=== PATIENT | female | born 1970 | race Hispanic/Latino ===

== ENCOUNTER 2017-03-14 23:22 | Emergency (ER) | payer OTHER ==
[2017-03-14 23:28] VITALS: BP 107/80; PULSE 76; RESP 16; TEMP 98; O2SAT 98
--- NOTE | 2017-03-14 23:58 | ED PDOC ---
HPI: Psych/Substance Abuse Time Seen by Provider: 03/14/17 23:35 Chief Complaint (Nursing): Alcohol Ingestion Chief Complaint (Provider): etoh History Per: Patient, EMS Additional History Per: Patient, EMS Additional Complaint(s): 46 y/o female brought in by EMS for acute alcohol intoxicatoin. Patient admits to drinking, she offers no acute medical or psychiatric complaints. Past Medical History Reviewed: Historical Data, Nursing Documentation, Vital Signs Vital Signs: Last Vital Signs Temp 98.0 F 03/14/17 23:23 Pulse 76 03/14/17 23:23 Resp 16 03/14/17 23:23 BP 107/80 03/14/17 23:23 Pulse Ox 98 03/14/17 23:23 - Medical History PMH: No Chronic Diseases - Surgical History Surgical History: No Surg Hx - Family History Family History: States: Unknown Family Hx - Social History Current smoker - smoking cessation education provided: No Alcohol: Occasional Drugs: Denies - Allergies Allergies/Adverse Reactions: Allergies Allergy/AdvReac Type Severity Reaction Status Date / Time Sulfa (Sulfonamide Allergy ITCHING Verified 03/14/17 23:23 Antibiotics) Review of Systems ROS Statement: Except As Marked, All Systems Reviewed And Found Negative Physical Exam - Reviewed Nursing Documentation Reviewed: Yes Vital Signs Reviewed: Yes - Physical Exam Appears: Positive for: Well, Non-toxic, No Acute Distress Head Exam: Positive for: ATRAUMATIC, NORMAL INSPECTION, NORMOCEPHALIC ENT: Positive for: Normal ENT Inspection Cardiovascular/Chest: Positive for: Regular Rate, Rhythm Respiratory: Positive for: Normal Breath Sounds Gastrointestinal/Abdominal: Positive for: Normal Exam Back: Positive for: Normal Inspection Neurologic/Psych: Positive for: Alert, Oriented, Other (+AOB) - ECG O2 Sat by Pulse Oximetry: 98 - Progress ED Course And Treament: accucheck 4:30 Patient awake, alert, oriented x3. Ambulating steady gait. Requesting to be discharged. Stable for discharge. Disposition - Clinical Impression Clinical Impression: Alcohol intoxication - Patient ED Disposition Is Patient to be Admitted: No Counseled Patient/Family Regarding: Studies Performed, Diagnosis, Need For Followup - Disposition Disposition: Routine/Home Disposition Time: 04:30 Condition: STABLE Instructions: Alcohol Intoxication (ED)
== END 2017-03-15 05:28 | disposition home or self-care (01) ==
LOC: H.ER 23:22
DX: F10.129 Alcohol abuse with intoxication, unspecified (principal)